=== PATIENT | male | born 1965 | race Caucasian/White ===

== ENCOUNTER 2016-12-01 11:51 | Emergency (ER) | payer OTHER ==
[2016-12-01 12:27] LABS: URINE CULTURE NEEDED? NO; URINE MICRO REVIEW NEEDED? NO; URINE SOURCE CLEAN CATCH
[2016-12-01 12:27] LABS: MANUAL DIFF NEEDED? NO
[2016-12-01 12:39] LABS: BILIRUBIN URINE NEGATIVE (NEGATIVE); BLOOD URINE NEGATIVE (NEGATIVE); COLOR YELLOW; GLUCOSE URINE >1000 mg/dL (NEGATIVE); LEUKOCYTES URINE NEGATIVE (NEGATIVE); NITRITE URINE NEGATIVE (NEGATIVE); PH URINE 5.5; PROTEIN URINE NEGATIVE (NEGATIVE); SP GRAVITY URINE 1.033; TURBIDITY URINE CLEAR (CLEAR); UROBILINOGEN URINE NORMAL (NORMAL)
[2016-12-01 12:41] LABS: UR EPITHELIAL CELLS <10 /HPF (<10); URINE BACTERIA NEGATIVE /HPF; URINE RBC <10 /HPF (<10); URINE WBC <10 /HPF (<10)
[2016-12-01 12:41] LABS: BASO% 1.4 % (0.0-0.8); EOS# 0.25 X1000 (0.0-0.7); HEMATOCRIT 41.5 % (42.0-52.0); HEMOGLOBIN 13.9 g/dL (14.0-18.0); LYMPH# 1.51 X1000 (1.2-3.4); MCH 30.3 PG (27-31); MCHC 33.5 g/dL (33-37); MCV 90.6 FL (81-99); MONO# 0.42 X1000 (0.11-0.59); MONO% 8.3 % (1.7-9.3); MPV 11.1 FL (7.4-10.4); NEUT% 55.3 % (42.2-75.2); PLT 184 X1000 (130-400); RBC 4.58 XMIL (4.7-6.1)
[2016-12-01 12:48] LABS: ACETONE SERUM NEGATIVE (NEGATIVE)
[2016-12-01 12:49] LABS: AGAP 13; ALBUMIN 3.9 g/dL (3.5-5.0); ALKALINE PHOSPHATASE 80 U/L (32-122); BUN 7 mg/dL (8-22); CALCIUM 8.8 mg/dL (8.8-10.2); CHLORIDE 98 mmol/L (98-107); COSMO 285; GOT 19 U/L (10-34); GPT 26 U/L (10-44); POTASSIUM 4.4 mmol/L (3.5-5.1); SODIUM 136 mmol/L (136-145); TCO2 25 mmol/L (25-35); TOTAL BILIRUBIN 0.23 mg/dL (0.20-1.00); TOTAL PROTEIN 7.1 g/dL (6.3-8.3)
--- NOTE | 2016-12-01 13:57 | PROVIDER DOCUMENTATION ---
HPI-General Adult - General Chief Complaint: High Blood Sugar Stated Complaint: ELEVATED BLOOD SUGAR Time Seen by Provider: 12/01/16 12:41 Allergies/Adverse Reactions: Patient Allergies Allergy/AdvReac Type Severity Reaction Status Date / Time No Known Allergies Allergy Verified 12/01/16 13:11 Home Medications: Home Medication List Medication Instructions Recorded Confirmed Last Taken Type Exenatide [Byetta] 5 mcg SQ DAILY 12/01/16 12/01/16 12/01/16 History Fluticasone/Salmeterol [Advair 1 each IH DAILY 12/01/16 12/01/16 12/01/16 History 250-50 Diskus] Hydrocodone/Acetaminophen [[place] 1 each PO Q4-6H PRN PRN 12/01/16 12/01/1612/01 History 10-325 Tablet] Insulin Lispro [Humalog] 10 unit SQ BID PRN 12/01/16 12/01/16 12/01/16 History PRAVAstatin [Pravachol] 10 mg PO QHS 12/01/16 12/01/16 12/01/16 History Sitagliptin Phosphate [Januvia] 100 mg PO DAILY 12/01/16 12/01/16 12/01/16 History Zolpidem [Ambien] 10 mg PO QHS 12/01/16 12/01/16 12/01/16 History - History of Present Illness -Gen Adult Nature of Presenting Problems: 51 y/o M with DM presents via his PCP with elevated blood glucose. Patient states he was at his regular PCP appt and his fingerstick read "high" on BG meter so his PCP advised him to come to the ER. Patient states his BG has been running high (300-500) over the past 3 weeks and he has been experiencing intermittent blurry vision, polyuria, polydipsia, nausea and fatigue. Review of Systems - Adult - REVIEW OF SYSTEMS - ADULT Constitutional: reports: no symptoms reported. denies: chills, fever Eyes: reports: blurred vision (intermittent). denies: decreased vision, double vision Ears, Nose, Mouth & Throat: reports: no symptoms reported. denies: ear discharge, ear pain Cardiovascular: reports: no symptoms reported. denies: chest pain Respiratory: reports: no symptoms reported. denies: cough, shortness of breath , wheezing Gastrointestinal: reports: nausea. denies: abdominal pain, vomiting Genitourinary: denies: dysuria, hematuria Musculoskeletal: reports: no symptoms reported. denies: muscle weakness Integumentary: reports: no symptoms reported. denies: itching, rash Neurological: reports: no symptoms reported. denies: dizziness/vertigo, numbness, paresthesia Psychiatric: reports: no symptoms reported Endocrine: reports: increased thirst, polyuria Hematologic/Lymphatic: reports: no symptoms reported Allergic/Immunologic: reports: no symptoms reported All Other Systems: Reviewed and Negative Past History - Adult - PAST MEDICAL HISTORY-ADULT Review of Records: reports: Nursing Assessment Review, Medications Reviewed Physical Exam-General - PHYSICAL EXAM-ADULT Initial Vital Signs Reviewed: Yes - CONSTITUTIONAL General Appearance: appears well, alert, no apparent distress - EYES Eyes: PERRL/EOMI, pink conjunctivae - HEAD, EARS, NOSE, MOUTH & THROAT HENMT: normocephalic/atraumatic - NECK Neck: non-tender, full range of motion - RESPIRATORY Respiratory: chest non-tender, lungs clear, normal breath sounds - CARDIOVASCULAR Cardiovascular: normal peripheral pulses, regular rate, rhythm, no edema - GASTROINTESTINAL (ABDOMEN) Abdominal Exam: normal bowel sounds, non tender, soft - LYMPHATIC Lymphatic: no adenopathy - MUSCULOSKELETAL Extremity: normal range of motion, non-tender, normal gait - SKIN Integumentary: normal color, normal turgor, warm/dry - NEUROLOGIC Neurologic: grossly normal, no motor/sensory deficits - PSYCHIATRIC Psych/Mental Status: normal mood/affect, normal thought content, normal thought process, oriented x 3 Progress - PLAN OF CARE/RESULTS Progress/Plan/Lab Results: Laboratory Tests 12/01/16 12/01/16 12/01/16 12:15 12:15 12:20 WBC 5.04 RBC 4.58 L Hgb 13.9 L Hct 41.5 L MCV 90.6 MCH 30.3 MCHC 33.5 RDW Std Deviation 14.4 Plt Count 184 MPV 11.1 H Neut % (Auto) 55.3 Lymph % (Auto) 30.0 [place] % (Auto) 8.3 Eos % (Auto) 5.0 Baso % (Auto) 1.4 H Neut # (Auto) 2.79 Lymph # (Auto) 1.51 [place] # (Auto) 0.42 Eos # (Auto) 0.25 Baso # (Auto) 0.07 Sodium 136 Potassium 4.4 Chloride 98 Carbon Dioxide 25 Anion Gap 13 BUN 7 L Creatinine 0.8 Estimated GFR/1.73 m2 > 60 BUN/Creatinine Ratio 9 Glucose 363 H Calculated Osmolality 285 Calcium 8.8 Total Bilirubin 0.23 AST 19 ALT 26 Alkaline Phosphatase 80 Total Protein 7.1 Albumin 3.9 Globulin 3.2 Albumin/Globulin Ratio 1.2 Urine Source CLEAN CATCH Urine Color YELLOW Urine Turbidity CLEAR Urine pH 5.5 Ur Specific [place] 1.033 Urine Protein NEGATIVE Ur Glucose (Stick) >1000 A Ur Ketones (Stick) NEGATIVE Urine Blood NEGATIVE Urine Nitrite NEGATIVE Urine Bilirubin NEGATIVE Urobilinogen Dipstick NORMAL Urine Leukocytes NEGATIVE Urine WBC (Auto) <10 Urine RBC (Auto) <10 U Epithel Cells (Auto) <10 Urine Bacteria (Auto) NEGATIVE Acetone Level NEGATIVE Orders Category Date Time Status Finger Stick Blood Sugar (ED) DIRECTED Care 12/01/16 13:43 Active ACETONE SERUM [CHEM] Stat Lab 12/01/16 12:15 Completed CBC WITH ELECTRONIC DIFF [HEME] Stat Lab 12/01/16 12:15 Completed COMPREHENSIVE METABOLIC PANEL [CHEM] Stat Lab 12/01/16 12:15 Completed UA Reflex [URINALYSIS W/POSS RFLX CULT] [URINALYSIS] Lab 12/01/16 12:20 Completed Stat Vital Signs Temp Pulse Resp BP Pulse Ox 12/01/16 12:13 97.3 F L 62 18 129/57 100 No Known Allergies Allergy (Verified 12/01/16 13:11) Exenatide [Byetta] 5 mcg SQ DAILY 12/01/16 Fluticasone/Salmeterol [Advair 250-50 Diskus] 1 each IH DAILY 12/01/16 Hydrocodone/Acetaminophen [[place] 10-325 Tablet] 1 each PO Q4-6H PRN PRN Insulin Lispro [Humalog] 10 unit SQ BID PRN 12/01/16 PRAVAstatin [Pravachol] 10 mg PO QHS 12/01/16 Sitagliptin Phosphate [Januvia] 100 mg PO DAILY 12/01/16 Zolpidem [Ambien] 10 mg PO QHS 12/01/16 I&O 11/30/16 12/01/16 12/02/16 06:59 06:59 06:59 Output Total 100 Balance -100 Laboratory 03/12/01/16 12/01/16 12:20 12:15 12:15 WBC 5.04 RBC 4.58 L Hgb 13.9 L Hct 41.5 L MCV 90.6 MCH 30.3 MCHC 33.5 RDW Std Deviation 14.4 Plt Count 184 MPV 11.1 H Neut % (Auto) 55.3 Lymph % (Auto) 30.0 [place] % (Auto) 8.3 Eos % (Auto) 5.0 Baso % (Auto) 1.4 H Neut # (Auto) 2.79 Lymph # (Auto) 1.51 [place] # (Auto) 0.42 Eos # (Auto) 0.25 Baso # (Auto) 0.07 Sodium 136 Potassium 4.4 Chloride 98 Carbon Dioxide 25 Anion Gap 13 BUN 7 L Creatinine 0.8 Estimated GFR/1.73 m2 > 60 BUN/Creatinine Ratio 9 Glucose 363 H Calculated Osmolality 285 Calcium 8.8 Total Bilirubin 0.23 AST 19 ALT 26 Alkaline Phosphatase 80 Total Protein 7.1 Albumin 3.9 Globulin 3.2 Albumin/Globulin Ratio 1.2 Urine Source CLEAN CATCH Urine Color YELLOW Urine Turbidity CLEAR Urine pH 5.5 Ur Specific [place] 1.033 Urine Protein NEGATIVE Ur Glucose (Stick) >1000 A Ur Ketones (Stick) NEGATIVE Urine Blood NEGATIVE Urine Nitrite NEGATIVE Urine Bilirubin NEGATIVE Urobilinogen Dipstick NORMAL Urine Leukocytes NEGATIVE Urine WBC (Auto) <10 Urine RBC (Auto) <10 U Epithel Cells (Auto) <10 Urine Bacteria (Auto) NEGATIVE Acetone Level NEGATIVE - REASSESSMENT Reassessment #1 Time Reassessed: 13:53 (Repeat BG 232 down from 363. No ketones in urine, no acetone in blood. CO2 25. No signs of DKA. Will discharge home to follow up with PCP.) Departure - Departure Time of Disposition Order: 13:51 DIAGNOSIS: Elevated random blood glucose level Disposition: HOME 01 Certified Medical Emergency: Emergent Condition: Good Additional Instructions: Follow up with your primary care provider to adjust your medication regimen for diabetes. ED Follow Up Instructions: You have been treated by a care provider in the Emergency Department. These instructions are being provided to you so you can have an understanding of how to care for yourself upon discharge. Upon discharge from the Emergency Department, you are responsible for making arrangements for follow-up care by a physician of your choice. Take all prescribed medications as directed. Return to the Emergency Department immediately for any new or worsening symptoms. You may call the Physician Referral phone number at [phone] to obtain a list of Physicians who are taking new patients. Attestation - Physician/ MIHIR Attestation Patient care was provided by Advanced Practice Provider:: Yes Advanced Practice Provider:: Evy Pete Advanced Practice Provider documentation review:: The Mid-level provider documentation, treatment plan and medical decision making was reviewed by the physician who agrees with all treatment and medical decision making by the MLP.
[2016-12-01 14:22] VITALS: BP 132/72
== END 2016-12-01 14:22 | disposition home or self-care (01) ==
LOC: ED 11:51
DX: E11.9 Type 2 diabetes mellitus without complications (principal); H53.8 Other visual disturbances; R35.8 Other polyuria; R11.0 Nausea; R53.83 Other fatigue; R63.1 Polydipsia; Z79.4 Long term (current) use of insulin; Z79.899 Other long term (current) drug therapy
CPT/HCPCS: 80053; 81001; 82009; 82948; 85025